=== PATIENT | male | born 1960 | race Caucasian/White ===

== ENCOUNTER 2017-12-06 18:21 | Emergency (ER) | payer SELFPAY | END 2017-12-06 19:23 | disposition home or self-care (01) | LOC: E/R 19:23 | DX: S61.250A Open bite of right index finger without damage to nail, initial encounter (principal); W55.01XA Bitten by cat, initial encounter; Y92.9 Unspecified place or not applicable | CPT/HCPCS: 99283 ==

== ENCOUNTER 2017-12-12 17:07 | Emergency (ER) | payer SELFPAY ==
[2017-12-12] MEDS: MUPIROCIN 2% 15 GM CR TOP (18:03)
== END 2017-12-12 19:06 | disposition home or self-care (01) ==
LOC: FTE 17:07
DX: L98.0 Pyogenic granuloma (principal)
CPT/HCPCS: 73130; 73130-RT; 99283-25